=== PATIENT | female | born 1995 | race Caucasian/White ===

== ENCOUNTER 2021-10-16 21:53 | Emergency (ER) | payer BC, OTHER ==
[2021-10-16] MEDS ORDERED: Sodium Chloride 0.9% 10 ML Syringe FLUSH PRN (21:54)
[2021-10-16] MEDS ORDERED: Lidocaine 1% with EPINEPHrine 1:100,000 20 ML MDV INJECT ONE (23:24)
== END 2021-10-17 01:29 | disposition home or self-care (01) ==
LOC: JD.ED 21:53
DX: S02.2XXB Fracture of nasal bones, initial encounter for open fracture (principal); S02.40DA Maxillary fracture, left side, initial encounter for closed fracture; S01.81XA Laceration without foreign body of other part of head, initial encounter; V80.010A Animal-rider injured by fall from or being thrown from horse in noncollision accident, initial encounter
CPT/HCPCS: 12013; 36415; 70450; 70486; 71260; 72125; 74177; 80053; 83690; 84703; 85025; 99285; J3490; 12011; 99283